=== PATIENT | male | born 1995 | race African-American/Black ===

== ENCOUNTER 2020-12-13 11:22 | Emergency (ER) | payer OTHER ==
[~2020-12-13] VITALS: Ht 185.4 cm; Wt 85.7 kg
[~2020-12-13 11:22] MED LIST: BACTRIM 400-801 TAB PO; TYLENOL W/CODEI1 TAB PO
[2020-12-13 11:29] VITALS: Ht 185.4 cm; Wt 85.7 kg
[2020-12-13] MEDS ORDERED: TYLENOL W/CODEI1 TAB PO (13:13)
[2020-12-13] MEDS ORDERED: VOLTAREN75 MG PO (13:13)
[2020-12-13 14:34] VITALS: BP 126/82
== END 2020-12-13 14:35 | disposition home or self-care (01) ==
LOC: D.ER 11:22
DX: S02.2XXA Fracture of nasal bones, initial encounter for closed fracture (principal); W22.8XXA Striking against or struck by other objects, initial encounter; Y92.9 Unspecified place or not applicable; Y93.89 Activity, other specified